=== PATIENT | male | born 1995 | race Caucasian/White ===

== ENCOUNTER 2023-05-22 13:03 | Inpatient (IN) | payer OTHER ==
[2023-05-22 13:56] LABS: Cocaine Screen,Urine Not Detected (NotDetected); Phencyclidine Screen,Urine Not Detected (NotDetected); Urn Cannabinoid Scrn Detected (NotDetected)
[2023-05-22 13:57] LABS: Amphetamine Screen,Urine Detected (NotDetected); Barbiturate Screen,Urine Not Detected (NotDetected); Benzodiazepines Screen,Urine Detected (NotDetected); Methadone Screen, Urine Not Detected (NotDetected); Opiate Screen,Urine Not Detected (NotDetected); Oxycodone Screen, Urine Not Detected (NotDetected); Tricyclic Antidepressant,Urine Not Detected (NotDetected)
[2023-05-22] MEDS ORDERED: LORazepam 1 MG TAB PO STA (14:50)
--- NOTE | 2023-05-22 15:00 | ED ---
Psych HPI - General Chief Complaint: Psychiatric Symptoms Stated Complaint: SUICIDAL IDEATION Time Seen by Provider: 05/22/23 13:16 Source: patient, RN notes reviewed Mode of arrival: ambulatory Limitations: no limitations - History of Present Illness Initial Comments: 28-year-old male presents emergency Department with chief complaint of depression, suicidal ideation, drug abuse. Patient states he relapsed on alcohol use. Patient states he he is severely depressed and states that he is a harm himself. Patient denies any alcohol abuse as a physical complaints. Patient was hospitalized a few months prior to this. - Related Data Home Medications Medication Instructions Recorded Confirmed Buprenorphine-Nalox 8-2 mg Tab 1 tab PO BID 11/15/22 11/15/22 [Suboxone 8-2 mg Tab] Previous Rx's Medication Instructions Recorded Mirtazapine [Remeron] 15 mg PO HS 30 Days #30 tab 11/15/22 Allergies Allergy/AdvReac Type Severity Reaction Status Date / Time No Known Allergies Allergy Verified 05/22/23 13:15 Review of Systems ROS Statement: Those systems with pertinent positive or pertinent negative responses have been documented in the HPI. ROS Other: All systems not noted in ROS Statement are negative. Past Medical History Past Medical History: No Reported History Additional Past Medical History / Comment(s): Cardiac Ablation at 14 years old. History of Any Multi-Drug Resistant Organisms: None Reported Past Surgical History: No Surgical Hx Reported Past Anesthesia/Blood Transfusion Reactions: No Reported Reaction Past Psychological History: ADD/ADHD, Anxiety, Depression Smoking Status: Current every day smoker, Vaper Past Alcohol Use History: None Reported Past Drug Use History: Cocaine, Marijuana, Opiates General Exam Limitations: no limitations General appearance: alert, in no apparent distress Head exam: Present: atraumatic, normocephalic, normal inspection Eye exam: Present: normal appearance, PERRL, EOMI. Absent: scleral icterus, conjunctival injection, periorbital swelling ENT exam: Present: normal exam, normal oropharynx, mucous membranes moist Neck exam: Present: normal inspection, full ROM. Absent: tenderness, meningismus, lymphadenopathy Respiratory exam: Present: normal lung sounds bilaterally. Absent: respiratory distress, wheezes, rales, rhonchi, stridor Cardiovascular Exam: Present: regular rate, normal rhythm, normal heart sounds. Absent: systolic murmur, diastolic murmur, rubs, gallop, clicks Neurological exam: Present: alert, oriented X3 Psychiatric exam: Present: depressed Course Vital Signs 05/22/23 13:12 Temperature 99.1 F Pulse Rate 86 Respiratory 18 Rate Blood Pressure 152/97 O2 Sat by Pulse 97 Oximetry Medical Decision Making - Medical Decision Making Was pt. sent in by a medical professional or institution (SADIQ Murray, AUTOMATIC CORN GRINDER OPERATOR, urgent care, hospital, or jail...) When possible be specific @ -No Did you speak to anyone other than the patient for history (EMS, parent, family, police, friend...)? What history was obtained from this source @ -No Did you review nursing and triage notes (agree or disagree)? Why? @ -I reviewed and agree with nursing and triage notes Were old charts reviewed (outside hosp., previous admission, EMS record, old EKG, old radiological studies, urgent care reports/EKG's, jail records)? Report findings @ -No old charts were reviewed Differential Diagnosis (chest pain, altered mental status, abdominal pain women, abdominal pain men, vaginal bleeding, weakness, fever, dyspnea, syncope, headache, dizziness, GI bleed, back pain, seizure, CVA, palpatations, mental health, musculoskeletal)? @ -Drug abuse, depression, suicidal ideation, anxiety EKG interpreted by me (3pts min.). @ -None X-rays interpreted by me (1pt min.). @ -None done CT interpreted by me (1pt min.). @ -None done U/S interpreted by me (1pt. min.). @ -None done What testing was considered but not performed or refused? (CT, X-rays, U/S, labs)? Why? @ -None What meds were considered but not given or refused? Why? @ -None Did you discuss the management of the patient with other professionals (professionals i.e. SADIQ Murray, AUTOMATIC CORN GRINDER OPERATOR, lab, RT, psych nurse, clinical social worker, converter operator, teacher, fire control officer, case resource manager)? Give summary @ -Patient fell are by psychiatric services recommends patient be admitted as he will not safety plan and has current suicidal ideations. Was smoking cessation discussed for >3mins.? @ -No Was critical care preformed (if so, how long)? @ -No Were there social determinants of health that impacted care today? How? (Homelessness, low income, unemployed, alcoholism, drug addiction, transportation, low edu. Level, literacy, decrease access to med. care, usp, rehab)? @ -No Was there de-escalation of care discussed even if they declined (Discuss DNR or withdrawal of care, Hospice)? DNR status @ -No What co-morbidities impacted this encounter? (DM, HTN, Smoking, COPD, CAD, Cancer, CVA, ARF, Chemo, Hep., AIDS, mental health diagnosis, sleep apnea, morbid obesity)? @ -Drug Abuse] Was patient admitted / discharged? Hospital course, mention meds given and route, prescriptions, significant lab abnormalities, going to OR and other pertinent info. @ -Admitted to psychiatric floor for further treatment and evaluation Undiagnosed new problem with uncertain prognosis? @ -No Drug Therapy requiring intensive monitoring for toxicity (Heparin, Nitro, Insulin, Cardizem)? @ -No Were any procedures done? @ -No Diagnosis/symptom? @ -Depression, suicidal ideation, drug abuse Acute, or Chronic, or Acute on Chronic? @ -Acute Uncomplicated (without systemic symptoms) or Complicated (systemic symptoms)? @ -complicated Side effects of treatment? @ -No Exacerbation, Progression, or Severe Exacerbation? @ -No Poses a threat to life or bodily function? How? (Chest pain, USA, AL, pneumonia, PE, COPD, DKA, ARF, appy, cholecystitis, CVA, Diverticulitis, Homicidal, Suicidal, threat to staff... and all critical care pts) @ -Yes patient is suicidal - Lab Data Lab Results 05/22/23 Range/Units 13:29 Urine Opiates Screen Not Detected (NotDetected) Ur Oxycodone Screen Not Detected (NotDetected) Urine Methadone Screen Not Detected (NotDetected) Ur Propoxyphene Screen Not Detected (NotDetected) Ur Barbiturates Screen Not Detected (NotDetected) U Tricyclic Antidepress Not Detected (NotDetected) Ur Phencyclidine Scrn Not Detected (NotDetected) Ur Amphetamines Screen Detected H (NotDetected) U Methamphetamines Scrn Not Detected (NotDetected) U Benzodiazepines Scrn Detected H (NotDetected) Urine Cocaine Screen Not Detected (NotDetected) U Marijuana (THC) Screen Detected H (NotDetected) Disposition Clinical Impression: Depression, Suicidal ideation, Drug abuse and dependence Disposition: TRANSFER TO PSYCH HOSP/UNIT Referrals: Kumar Back MD [Primary Care Provider] - 1-2 days Time of Disposition: 15:00
[2023-05-22] MEDS ORDERED: MAGNESIUM HYDROXIDE 2,400 MG/30 ML CUP PO PRN (18:49)
[2023-05-22] MEDS ORDERED: MAG HYDROX/AL HYDROX/SIMETH 30 ML CUP PO PRN (18:49)
[2023-05-22] MEDS ORDERED: OLANZapine 10 MG VIAL IM PRN (19:05)
[2023-05-22] MEDS ORDERED: LOPERAMIDE 2 MG CAP PO PRN (19:05)
[2023-05-22] MEDS ORDERED: hydrOXYzine HCL 50 MG/ML 1 ML VIAL IM PRN (19:05)
[2023-05-22] MEDS ORDERED: ONDANSETRON 4 MG TAB PO PRN (19:05)
[2023-05-22] MEDS: ACETAMINOPHEN TAB 325 MG TAB PO PRN (20:38)
[2023-05-22] MEDS: OLANZapine 5 MG TAB PO PRN (23:48)
[2023-05-22] MEDS: hydrOXYzine pamoate 25 MG CAP PO PRN (23:48)
[2023-05-23 07:02] LABS: Basophils % (A) 0 %; Eosinophils # (A) 0.1 k/uL (0-0.7); Eosinophils % (A) 1 %; HCT 47.3 % (39.0-53.0); HGB 16.2 gm/dL (13.0-17.5); Lymphocytes # (A) 2.4 k/uL (1.0-4.8); Lymphocytes % (A) 17 %; MCH 31.1 pg (25.0-35.0); MCHC 34.2 g/dL (31.0-37.0); Mean Platelet Volume 7.7; Monocytes # (A) 1.1 k/uL (0-1.0); Monocytes % (A) 8 %; Neutrophils # (A) 9.8 k/uL (1.3-7.7); Neutrophils % (A) 70 %; Platelet Count 251 k/uL (150-450); RDW 12.5 % (11.5-15.5)
[2023-05-23] MEDS: ACETAMINOPHEN TAB 325 MG TAB PO PRN (08:10)
[2023-05-23] MEDS: NICOTINE 14MG/24HR PATCH TRANSDERM SCH (08:11)
[2023-05-23 10:19] LABS: ALT 72 U/L (4-49); AST 36 U/L (17-59); African American GFR (CKD) >90 (>60 ml/min/1.73 sqM); Albumin 4.7 g/dL (3.5-5.0); Alkaline Phosphatase 57 U/L (38-126); Anion Gap 13 mmol/L; Blood Urea Nitrogen 18 mg/dL (9-20); Calcium 9.7 mg/dL (8.4-10.2); Carbon Dioxide 23 mmol/L (22-30); Chloride 104 mmol/L (98-107); Glucose 151 mg/dL (74-99); Non-African American GFR(CKD) >90 (>60 ml/min/1.73 sqM); Potassium 3.7 mmol/L (3.5-5.1); Sodium 140 mmol/L (137-145); Total Bilirubin 0.8 mg/dL (0.2-1.3); Total Protein 7.3 g/dL (6.3-8.2)
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
[2023-05-23] MEDS: ARIPiprazole 5 MG TAB PO SCH (13:10)
[2023-05-23] MEDS: BUPRENORPHINE-NALOX 8-2 MG TAB 1 EACH TAB.SUBL SL SCH ×2 (13:11→20:55)
[2023-05-23 13:34] LABS: Appearance,Urine Clear (Clear); Bilirubin,Urine Negative (Negative); Blood,Urine Trace (Negative); Calcium Oxalate Crystals,Urine Occasional /hpf; Color,Urine Yellow; Glucose,Urine (UA) Negative (Negative); Ketones,Urine Negative (Negative); Leukocyte Esterase,Urine Small (Negative); Mucus,Urine Occasional /hpf; Nitrite,Urine Negative (Negative); PH, Urine 5.5 (5.0-8.0); Protein,Urine Trace (Negative); RBC,Urine 8 /hpf (0-5); Specific Gravity,Urine 1.029 (1.001-1.035); WBC,Urine 9 /hpf (0-5)
[2023-05-23] MEDS: hydrOXYzine pamoate 25 MG CAP PO PRN (18:21)
[2023-05-23] MEDS: OLANZapine 5 MG TAB PO PRN (19:21)
[2023-05-23] MEDS ORDERED: MIRTAZAPINE 15 MG TAB PO SCH (21:00)
--- NOTE | 2023-05-23 23:26 | P.HPIM ---
History of Present Illness H&P Date: 05/23/23 Chief Complaint: Medication withdrawal depression. This is a 28-year-old white male who up until recently was struggling with fentanylAddiction. He has had history of depression in the past. He states he was having difficulty because of a work trip where he overstayed secondary to his work requirement and ran out of medication. He states he was struggling and started using inappropriate medications at times. No fentanyl was used however. No history of ethanol abuse. The patient is now admitted for severe depression and anxiety. No hallucinations stated. Review of Systems Constitutional: Denies chills, Denies fever Eyes: denies blurred vision, denies pain Ears, nose, mouth and throat: Denies headache, Denies sore throat Cardiovascular: Denies chest pain, Denies shortness of breath Respiratory: Denies cough Gastrointestinal: Denies abdominal pain, Denies diarrhea, Denies nausea, Denies vomiting Past Medical History Past Medical History: No Reported History Additional Past Medical History / Comment(s): Cardiac Ablation at 14 years old. History of Any Multi-Drug Resistant Organisms: None Reported Past Surgical History: No Surgical Hx Reported Past Anesthesia/Blood Transfusion Reactions: No Reported Reaction Past Psychological History: ADD/ADHD, Anxiety, Depression Smoking Status: Current every day smoker, Vaper Past Alcohol Use History: None Reported Past Drug Use History: Cocaine, Marijuana, Opiates Additional Drug Use History / Comment(s): pt states he uses 1700mg of fentanyl day,. he uses cocaine regularly. also takes adderall daily. marijuana daily Medications and Allergies Home Medications Medication Instructions Recorded Confirmed Type Buprenorphine/Naloxone 8Mg/2Mg 2 film SUBLINGUAL BID 05/22/23 05/22/23 History [Suboxone 8-2Mg Film] Dextroamphetamine/Amphetamine 30 mg PO DAILY 05/22/23 05/22/23 History [Adderall Xr 30 mg Capsule] Allergies Allergy/AdvReac Type Severity Reaction Status Date / Time No Known Allergies Allergy Verified 05/22/23 15:22 Physical Exam Vitals: Vital Signs Temp Pulse BP 05/23/23 13:12 97.6 F 94 148/96 - Constitutional General appearance: no acute distress - EENT Eyes: EOMI - Neck Neck: no lymphadenopathy - Respiratory Respiratory: bilateral: CTA - Cardiovascular Rhythm: regular Heart sounds: normal: S1, S2 Abnormal Heart Sounds: no S3 Gallop - Gastrointestinal General gastrointestinal: soft, no tenderness - Psychiatric Psychiatric: A&O x's 3, appropriate affect Results CBC & Chem 7: 05/23/23 06:41 05/23/23 06:41 Labs: Abnormal Lab Results - Last 24 Hours (Table) 05/23/23 05/23/23 05/23/23 Range/Units 06:41 06:41 13:11 WBC 14.0 H (3.8-10.6) k/uL Neutrophils # 9.8 H (1.3-7.7) k/uL Monocytes # 1.1 H (0-1.0) k/uL Glucose 151 H (74-99) mg/dL ALT 72 H (4-49) U/L Urine Protein Trace H (Negative) Urine Blood Trace H (Negative) Ur Leukocyte Esterase Small H (Negative) Urine RBC 8 H (0-5) /hpf Urine WBC 9 H (0-5) /hpf Calcium Oxalate Crystal Occasional H (None) /hpf Urine Mucus Occasional H (None) /hpf Assessment and Plan (1) Depression Current Visit: Yes Status: Acute Code(s): F32.A - DEPRESSION, UNSPECIFIED SNOMED Code(s): 97526897 (2) Drug abuse and dependence Current Visit: Yes Status: Acute Code(s): F19.20 - OTHER PSYCHOACTIVE SUBSTANCE DEPENDENCE, UNCOMPLICATED SNOMED Code(s): 6578172 (3) Suicidal ideation Current Visit: Yes Status: Acute Code(s): R45.851 - SUICIDAL IDEATIONS SNOMED Code(s): 2210639 (4) ADD (attention deficit disorder) Current Visit: No Status: Acute Code(s): F98.8 - OTH BEHAV/EMOTN DISORD W ONSET USLY OCCUR IN CHLDHD AND ADOL SNOMED Code(s): 60837321 Plan: With patient has been started on low-dose atypical antipsychotic. Restart Suboxone per protocol of the unit. We will continue follow from medical perspective. Prognosis is improving. Spoke at length about substance abuse improvement lifestyle excellence. Time with Patient: Greater than 30
[2023-05-24] MEDS: hydrOXYzine pamoate 25 MG CAP PO PRN ×2 (00:07→15:59)
[2023-05-24] MEDS ORDERED: chlordiazePOXIDE 25 MG CAP PO ONE (00:25)
[2023-05-24] MEDS: NICOTINE 14MG/24HR PATCH TRANSDERM SCH (08:27)
[2023-05-24] MEDS: ARIPiprazole 5 MG TAB PO SCH (08:30)
[2023-05-24] MEDS: BUPRENORPHINE-NALOX 8-2 MG TAB 1 EACH TAB.SUBL SL SCH ×2 (08:43→20:25)
--- NOTE | 2023-05-24 11:35 | P.PN ---
Progress Note - Text Progress Note Date: 05/24/23 Interval History: Patient was seen [wandering the hallways] and was directable and agreeable to speak with flex o writer operator in the office. [ Patient appears to have improvement in hygiene and grooming today. He appears to be more pleasant today. He states that last night his blood pressure was high and he is feeling very anxious in going through withdrawal. He was given Librium 1 dose of 50 mg and states that he did well after that and was able to sleep. He claims that he is finding it hard to sleep on the unit and was agreeable to have his Remeron increased. We also spoke about increasing his Abilify which she is stating that it is helping stabilize his mood. States that he still having some anxiety during the day he was reminded that he had Vistaril as needed. States that he has been trying to go to groups. He was asking questions about potential discharge next week when he is more stable. He is still waiting to hear back from the screening for rehab however at this time he is looking more likely doing outpatient treatment instead of inpatient due to his work schedule]. At this time patient denies any suicidal or homical ideations, intent or plan. Patient denies any auditory, visual hallucinations and denies any paranoia or delusions. Patient denies any side effects from the medications and has been compliant with meds. Mental Status Exam: General Appearance: Patient appears to be stated age is alert, directable, and attempts to cooperate. Patient appears to have fair hygiene and grooming. Behavior: Patient is seated without any agitated behavior. Slightly restless with mild tremor, attempts to cooperate Speech: Patient's speech is fluent and nonpressured. Mood/Affect: Patient reports their mood is "a bit better", affect is congruent and improving mildly Suicidality/Homicidality: Patient denies having any homicidal ideation intent or plan. Denies current suicidal ideationn Perceptions: Patient denies any visual hallucinations and denies any auditory hallucinations Though content/process: There is no evidence of any delusional thought content and thought process is linear and goal-directed. Memory and concentration: AOX3, grossly intact for the purposes of this session. Judgment and insight: Fair insight, improving judgment, impulsive IMPRESSIONS: Depressive disorder unspecified, likely bipolar depression Opioid use disorder, severe dependence on maintenance therapy Benzodiazepine abuse cocaine use disorder cannabis use disorder nicotine dependence PLAN: -Patient is admitted under voluntary status to MHU for stabilization of psychiatric symptoms and safety. Patient signed adult voluntary form and medication consent and is placed in patient's chart. -Medications : increase abilify 5 mg daily for mood stabilization, increase remeron 30 mg qhs for insomnia/mood. continue home dose of suboxone 8 mg bid for opioid dependence Ativan 1 mg q6hr prn for withdrawal from BZD according to MARCELA Librium 20 mg BID for withdrawal with plan to taper down for benzo withdrawal over the weekend. [facility] protocol q6hr - Vistaril and zyprexa PRN for anxiety/agitation -NRT - nicotine patch -SW on board for discharge planning. Encourage patient to participate in groups to work on coping skills. likely discharge saturday. patient is opting for outpatient [facility] therapy instead of inpt.
[2023-05-24] MEDS: NICOTINE 21MG/24HR PATCH TRANSDERM SCH (13:14)
[2023-05-24] MEDS: MIRTAZAPINE 15 MG TAB PO SCH (20:25)
[2023-05-24] MEDS: LORazepam 1 MG TAB PO PRN (20:31)
[2023-05-24] MEDS ORDERED: cloNIDine HCL 0.1 MG TAB PO STA (22:00)
[2023-05-24] MEDS ORDERED: LORazepam 1 MG TAB PO STA (22:00)
[2023-05-24] MEDS: IBUPROFEN 600 MG TAB PO PRN (23:08)
[2023-05-25] MEDS: LORazepam 1 MG TAB PO PRN ×2 (06:41→18:28)
[2023-05-25] MEDS: NICOTINE 21MG/24HR PATCH TRANSDERM SCH (08:18)
[2023-05-25] MEDS: ARIPiprazole 5 MG TAB PO SCH (08:19)
[2023-05-25] MEDS: BUPRENORPHINE-NALOX 8-2 MG TAB 1 EACH TAB.SUBL SL SCH ×2 (08:19→20:03)
--- NOTE | 2023-05-25 11:10 | P.PN ---
Subjective Progress Note Date: 05/25/23 Principal diagnosis: IMPRESSIONS: Depressive disorder unspecified, likely bipolar depression Opioid use disorder, severe dependence on maintenance therapy Benzodiazepine abuse cocaine use disorder cannabis use disorder nicotine dependence Patient Name: Aleksandr Lu Date of : 89 Patient Status: Inpatient Attending Provider: Jayme Murphy Date: 11/15 Progress note Bran Wyman M.D. Interval History: Patient was seen [wandering the hallways] and was directable and agreeable to speak with consumer loan underwriter in the office. Patient was initially having a visitation with one of his family members and was seen afterwards Patient reports that he slept better of it was giving the medications at nighttime He appears to be more pleasant today. He states that last night his blood pressure was high and he is feeling very anxious in going through withdrawal. He was asking questions about potential discharge next week when he is more stable. He is still waiting to hear back from the screening for rehab however at this time he is looking more likely doing outpatient treatment instead of inpatient due to his work schedule]. At this time patient denies any suicidal or homical ideations, intent or plan. Patient denies any auditory, visual hallucinations and denies any paranoia or delusions. Patient denies any side effects from the medications and has been compliant with meds. Mental Status Exam: General Appearance: Patient appears to be stated age is alert, directable, and attempts to cooperate. Patient appears to have fair hygiene and grooming. Behavior: Patient is seated without any agitated behavior. Slightly restless with mild tremor, attempts to cooperate Speech: Patient's speech is fluent and nonpressured. Mood/Affect: Patient reports their mood is "a bit better", affect is congruent and improving mildly Suicidality/Homicidality: Patient denies having any homicidal ideation intent or plan. Denies current suicidal ideationn Perceptions: Patient denies any visual hallucinations and denies any auditory hallucinations Though content/process: There is no evidence of any delusional thought content and thought process is linear and goal-directed. Memory and concentration: AOX3, grossly intact for the purposes of this session. Judgment and insight: Fair insight, improving judgment, impulsive IMPRESSIONS: Depressive disorder unspecified, likely bipolar depression Opioid use disorder, severe dependence on maintenance therapy Benzodiazepine abuse cocaine use disorder cannabis use disorder nicotine dependence PLAN: -Patient is admitted under voluntary status to MHU for stabilization of psychiatric symptoms and safety. Patient signed adult voluntary form and medication consent and is placed in patient's chart. -Medications : increase abilify 5 mg daily for mood stabilization, increase remeron 30 mg qhs for insomnia/mood. continue home dose of suboxone 8 mg bid for opioid dependence Ativan 1 mg q6hr prn for withdrawal from BZD according to [facility] Librium 20 mg BID for withdrawal with plan to taper down for benzo withdrawal over the weekend. [facility] protocol q6hr - Vistaril and zyprexa PRN for anxiety/agitation -NRT - nicotine patch -SW on board for discharge planning. Encourage patient to participate in groups to work on coping skills. likely discharge saturday. patient is opting for outpatient [facility] therapy instead of inpt. Bran Wyman M.D. Objective - Vital Signs Vital signs: Vital Signs Temp 96.7 F L 05/25/23 06:30 Pulse 85 05/25/23 06:30 Resp 16 05/25/23 06:30 BP 139/99 05/25/23 06:30 Pulse Ox 99 05/25/23 06:30 FiO2 - Labs CBC & Chem 7: 05/23/23 06:41 05/23/23 06:41
[2023-05-25] MEDS: MIRTAZAPINE 15 MG TAB PO SCH (21:52)
[2023-05-25] MEDS: hydrOXYzine pamoate 25 MG CAP PO PRN (21:55)
[2023-05-26] MEDS: IBUPROFEN 600 MG TAB PO PRN (06:15)
[2023-05-26] MEDS: BUPRENORPHINE-NALOX 8-2 MG TAB 1 EACH TAB.SUBL SL SCH ×2 (08:14→20:07)
[2023-05-26] MEDS: ARIPiprazole 5 MG TAB PO SCH (08:14)
[2023-05-26] MEDS: NICOTINE 21MG/24HR PATCH TRANSDERM SCH (08:15)
--- NOTE | 2023-05-26 09:09 | P.PN ---
Subjective Progress Note Date: 05/26/23 Principal diagnosis: IMPRESSIONS: Depressive disorder unspecified, likely bipolar depression Opioid use disorder, severe dependence on maintenance therapy Benzodiazepine abuse cocaine use disorder cannabis use disorder nicotine dependence Patient Name: Aleksandr Lu Date of : [birth year] Patient Status: Inpatient Attending Provider: Jayme Murphy Date: 05/26/23 Progress note Bran Garo Parra Interval History: Patient was seen [wandering the hallways] and was directable and agreeable to speak with check writer in the office. The patient reports that he feels a lot better and that he is not experiencing any withdrawals or shakes He says that he slept well He was asking questions about potential discharge in the next few days He is still waiting to hear back from the screening for rehab however at this t diaz he is looking more likely doing outpatient treatment instead of inpatient due to his work schedule]. At this time patient denies any suicidal or homical ideations, intent or plan. Patient denies any auditory, visual hallucinations and denies any paranoia or delusions. Patient denies any side effects from the medications and has been compliant with meds. Mental Status Exam: General Appearance: Patient appears to be stated age is alert, directable, and attempts to cooperate. Patient appears to have fair hygiene and grooming. Behavior: Patient is seated without any agitated behavior. Slightly restless with mild tremor, attempts to cooperate Speech: Patient's speech is fluent and nonpressured. Mood/Affect: Patient reports their mood is "a bit better", affect is congruent and improving mildly Suicidality/Homicidality: Patient denies having any homicidal ideation intent or plan. Denies current suicidal ideationn Perceptions: Patient denies any visual hallucinations and denies any auditory hallucinations Though content/process: There is no evidence of any delusional thought content and thought process is linear and goal-directed. Memory and concentration: AOX3, grossly intact for the purposes of this session. Judgment and insight: Fair insight, improving judgment, impulsive IMPRESSIONS: Depressive disorder unspecified, likely bipolar depression Opioid use disorder, severe dependence on maintenance therapy Benzodiazepine abuse cocaine use disorder cannabis use disorder nicotine dependence PLAN: -Patient is admitted under voluntary status to MHU for stabilization of p sychiatric symptoms and safety. Patient signed adult voluntary form and medication consent and is placed in patient's chart. -Medications : increase abilify 5 mg daily for mood stabilization, increase remeron 30 mg qhs for insomnia/mood. continue home dose of suboxone 8 mg bid for opioid dependence Ativan 1 mg q6hr prn for withdrawal from BZD according to [facility] Librium 20 mg BID for withdrawal with plan to taper down for benzo withdrawal over the weekend. [facility] protocol q6hr - Vistaril and zyprexa PRN for anxiety/agitation -NRT - nicotine patch -SW on board for discharge planning. Encourage patient to participate in groups to work on coping skills. likely discharge saturday. patient is opting for outpatient [facility] therapy instead of inpt. Bran Wyman M.D. Objective - Vital Signs Vital signs: Vital Signs Temp 97.8 F 05/26/23 05:44 Pulse 96 05/26/23 05:44 Resp 18 05/26/23 05:44 BP 161/96 05/26/23 05:44 Pulse Ox 99 05/26/23 05:44 FiO2 - Labs CBC & Chem 7: 05/23/23 06:41 05/23/23 06:41
[2023-05-26] MEDS: hydrOXYzine pamoate 25 MG CAP PO PRN (16:24)
[2023-05-26] MEDS: MIRTAZAPINE 15 MG TAB PO SCH (21:42)
[2023-05-27] MEDS: ARIPiprazole 5 MG TAB PO SCH (08:12)
[2023-05-27] MEDS: NICOTINE 21MG/24HR PATCH TRANSDERM SCH (08:12)
[2023-05-27] MEDS: BUPRENORPHINE-NALOX 8-2 MG TAB 1 EACH TAB.SUBL SL SCH ×2 (08:12→20:10)
[2023-05-27] MEDS: IBUPROFEN 600 MG TAB PO PRN ×2 (08:37→17:22)
--- NOTE | 2023-05-27 10:42 | P.PN ---
Progress Note - Text Progress Note Date: 05/27/23 Interval History: Patient was seen sitting in the lounge this morning and was directable and agr eeable to speak with card writer hand in the office. [ Patient appears to have improvement in hygiene and grooming today and was more directable during the interview. He claims that he is doing a bit better today overall. States that she is tolerating the medications fairly well. He was asking if he could have his Remeron increased to 45 mg once again. He was relying on the Librium to help him with sleep however now was instructed to try the Vistaril instead. He claims that he was accepted into a program for rehab in [place] in his work and pay for it and he states that he is excited to go. He was asking more about discharged today and when the community arranged. He states that he is going to groups and having to participate. At this time patient denies any suicidal or homical ideations, intent or plan. Patient denies any auditory, visual hallucinations and denies any paranoia or delusions. Patient denies any side effects from the medications and has been compliant with meds. Mental Status Exam: General Appearance: Patient appears to be stated age is alert, directable, and attempts to cooperate. Patient appears to have fair hygiene and grooming. Behavior: Patient is seated without any agitated behavior, attempts to cooperate Speech: Patient's speech is fluent and nonpressured. Mood/Affect: Patient reports their mood is "ok", affect is congruent and improving mildly Suicidality/Homicidality: Patient denies having any homicidal ideation intent or plan. Denies current suicidal ideationn Perceptions: Patient denies any visual hallucinations and denies any auditory hallucinations Though content/process: There is no evidence of any delusional thought content and thought process is linear and goal-directed. Memory and concentration: AOX3, grossly intact for the purposes of this session. Judgment and insight: Fair insight, improving judgment IMPRESSIONS: Depressive disorder unspecified, likely bipolar depression Opioid use disorder, severe dependence on maintenance therapy Benzodiazepine abuse cocaine use disorder cannabis use disorder nicotine dependence PLAN: -Patient is admitted under voluntary status to MHU for stabilization of psychiatric symptoms and safety. Patient signed adult voluntary form and medication consent and is placed in patient's chart. -Medications : abilify 5 mg daily for mood stabilization, increase remeron 45 mg qhs for insomnia/mood. continue home dose of suboxone 8 mg bid for opioid dependence. Ativan 1 mg q6hr prn for withdrawal from BZD according to [facility] decrease Librium 10 mg BID for withdrawal with plan to taper down for benzo withdrawal [facility] protocol q6hr - Vistaril and zyprexa PRN for anxiety/agitation -NRT - nicotine patch - on board for discharge planning. Encourage patient to participate in groups to work on coping skills. likely discharge saturday. patient will be picked up and travel arrangements will be made so patient can go to rehab in [place]
[2023-05-27] MEDS ORDERED: MIRTAZAPINE 15 MG TAB PO SCH (21:00)
[2023-05-28] MEDS: hydrOXYzine pamoate 25 MG CAP PO PRN (03:19)
[2023-05-28 06:27] VITALS: RESP 16; TEMP 98.2
[2023-05-28] MEDS: ARIPiprazole 5 MG TAB PO SCH (08:02)
[2023-05-28] MEDS: BUPRENORPHINE-NALOX 8-2 MG TAB 1 EACH TAB.SUBL SL SCH (08:02)
[2023-05-28] MEDS: NICOTINE 21MG/24HR PATCH TRANSDERM SCH (08:02)
[2023-05-28 08:07] VITALS: BP 163/101; PULSE 102
--- NOTE | 2023-05-28 10:11 | P.DS ---
Providers Date of admission: 05/22/23 18:38 Expected date of discharge: 05/28/23 Attending physician: Jayme Murphy MD Consults: 05/22/23 19:02 Consult Physician Routine Consulting Provider: Kumar Back Consult Reason/Comments: H&P Do you want consulting provider notified?: Yes, Notify in am Primary care physician: Kumar Back - Discharge Diagnosis(es) (1) Depressive disorder Current Visit: Yes Status: Acute Priority: High (2) Opioid use disorder, severe, dependence Current Visit: Yes Status: Acute Priority: High (3) Benzodiazepine abuse Current Visit: Yes Status: Acute Priority: High (4) Cocaine use disorder Current Visit: Yes Status: Acute Priority: High (5) Cannabis use disorder Current Visit: Yes Status: Acute Priority: Medium (6) Nicotine dependence Current Visit: Yes Status: Acute Priority: Low Hospital Course: Admission HPI: Admission note was completed by life insurance underwriter "Patient is a single, employed, 28-year-old [place]ian male who is presenting with suicidal ideation and poly substance use. Patient presented to the ED with suicidal ideation, depression and substance abuse. Patient was last admitted to the mental health unit in October 2022. Patient had claimed that he relapsed back on alcohol. Patient was admitted voluntarily the mental health unit and seen wandering the hallways today. Patient states that he was feeling depressed and suicidal before coming in. He states that he brought himself into the hospital for help. 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 He claims that he did not talk enough Suboxone with him. States that instead of getting his work to pay for 2 extra flights to come home to get it he states that he "started using drugs and stat". He claims that he was worried about withdrawals at that time. States that the relapses back in April 27 of this year. He claims that he was using fentanyl about 2 mg a day. Claims that his primary care physician prescribes him Suboxone which she was doing fairly well on 8 mg film twice a day. He states that he was also using Xanax off the street and also cocaine use has increased. States that he smokes cigarettes as well and also marijuana regularly. He claims that he was feeling depressed mainly because of the relapse on the drug use that he has been doing. Claims that he is also feeling anxious. States that his sleep is poor, appetite has also been poor. At this time is denying any suicidal or homicidal ideations intent or plan. Denying any auditory or visual hallucinations. Patient was positive for amphetamines, BZD and THC. " Hospital course: Upon admission to the unit patient was directable and agreeable to commence treatment and signed adult voluntary form. Patient got along well with other patients on the unit and followed unit protocol. Patient was compliant with the medications and denied any side effects throughout hospital course. Patient was started on Abilify and increased her dose of 5 mg daily for mood stabilization, Remeron 45 mg daily at bedtime for insomnia/mood, patient was restarted back on Suboxone 8 mg twice a day for opioid dependence, Librium was started and scheduled and gradually taper down for benzodiazepine withdrawal. Patient was also on [facility] protocol with when necessary Ativan. When necessary Vistaril for anxiety/insomnia. Patient spoke of his stressors and engaged in therapy both group and individual. Patient was also seen by medical team for history and physical exam. Throughout the course of the hospitalization patient gradually improved with regards to mood, anxiety, mood lability, sleep and became more future oriented with improved insight and judgment. On the day of discharge patient denied any suicidal or homicidal ideations intent or plan denied any auditory or visual hallucinations. Patient endorsed wanting to live for his health and family. The patient denied any access to guns or weapons. Patient denied any paranoia and did not endorse any delusions. Patient does have a significant history of substance abuse and was counseled on abstaining from all substances including alcohol and marijuana. Patient was able to get into a inpatient rehab program in [place] and will be picked up by his parents today and taken to the airport to commence this program starting tomorrow likely. Patient was also counseled on the medications and need for regular compliance and was encouraged to follow-up with their outpatient appointment for mental health and also for primary care. Prior to discharge a family meeting will be arranged by social media community manager to answer any questions and ensure safety upon discharge. Mental status exam: General Appearance: Patient appears to be tall, several tattoos, wearing glasses, stated age is alert, pleasant, and cooperative. Patient is in no acute distress and has improved hygiene and grooming Behavior: Patient is calmly seated without any agitated behavior. Speech: Patient's speech is fluent and nonpressured. Mood/Affect: Patient reports their mood is "good", affect is congruent and euthymic. Suicidality/Homicidality: Patient denies having any suicidal or homicidal ideation intent or plan. Perceptions: Patient denies any auditory or visual hallucinations. Though content/process: There is no evidence of any delusional thought content and thought process is linear and goal-directed. more future oriented Memory and concentration: AOX3, grossly intact for the purposes of this session. Can spell "WORLD" backwards correctly. Judgment and insight: improved with guarded prognosis Impression: Depressive disorder unspecified, likely bipolar depression Opiate use disorder, severe dependence on maintenance therapy Benzodiazepine abuse Cocaine use disorder Cannabis use disorder Nicotine dependence Plan: -Continue with discharge today as patient has improved and stabilized psychiatrically and is not currently an imminent threat to himself and/or others. Patient will remain at chronically elevated risk for harm to self and/or others due to his impulsivity and polysubstance abuse. -Continue medications: Abilify 5 mg daily for mood stabilization, Remeron 45 mg daily at bedtime for insomnia/mood, continue with home dose of Suboxone 8 mg twice a day for opiate dependence, we'll give a 3 day supply of Librium 10 mg daily at bedtime for benzodiazepine withdrawal then discontinue. Vistaril 50 mg twice a day when necessary for anxiety. -Patient was counseled on the need for medication compliance and appropriate follow-up at mental health and also primary care for medical issues. Patient verbalized understanding and agreed. -Social work to arrange for and conduct family meeting to ensure safety upon discharge and answer any questions/concerns. Social work also to arrange for patients follow up appointments for psychiatric care along with follow up with primary care provider. -Patient counseled on abstaining from recreational drugs and marijuana and alcohol. Was informed/educated on the adverse effects on their physical and mental health. Patient verbally agreed and understood. Patient will be going to a inpatient rehab program for substance use in [place], will be picked up by his parents today and taken to the airport. -Patient was instructed to return to the hospital or seek immediate medical care if their psychiatric or medical symptoms do worsen or reoccur. Allergies Allergy/AdvReac Type Severity Reaction Status Date / Time No Known Allergies Allergy Verified 05/22/23 15:22 Laboratory Results WBC 14.0 k/uL (3.8-10.6) H 05/23/23 06:41 RBC 5.20 m/uL (4.30-5.90) 05/23/23 06:41 Hgb 16.2 gm/dL (13.0-17.5) 05/23/23 06:41 Hct 47.3 % (39.0-53.0) 05/23/23 06:41 MCV 91.0 fL (80.0-100.0) 05/23/23 06:41 MCH 31.1 pg (25.0-35.0) 05/23/23 06:41 MCHC 34.2 g/dL (31.0-37.0) 05/23/23 06:41 RDW 12.5 % (11.5-15.5) 05/23/23 06:41 Plt Count 251 k/uL (150-450) 05/23/23 06:41 MPV 7.7 05/23/23 06:41 Neutrophils % 70 % 05/23/23 06:41 Lymphocytes % 17 % 05/23/23 06:41 Monocytes % 8 % 05/23/23 06:41 Eosinophils % 1 % 05/23/23 06:41 Basophils % 0 % 05/23/23 06:41 Neutrophils # 9.8 k/uL (1.3-7.7) H 05/23/23 06:41 Lymphocytes # 2.4 k/uL (1.0-4.8) 05/23/23 06:41 Monocytes # 1.1 k/uL (0-1.0) H 05/23/23 06:41 Eosinophils # 0.1 k/uL (0-0.7) 05/23/23 06:41 Basophils # 0.0 k/uL (0-0.2) 05/23/23 06:41 Sodium 140 mmol/L (137-145) 05/23/23 06:41 Potassium 3.7 mmol/L (3.5-5.1) 05/23/23 06:41 Chloride 104 mmol/L (98-107) 05/23/23 06:41 Carbon Dioxide 23 mmol/L (22-30) 05/23/23 06:41 Anion Gap 13 mmol/L 05/23/23 06:41 BUN 18 mg/dL (9-20) 05/23/23 06:41 Creatinine 0.81 mg/dL (0.66-1.25) 05/23/23 06:41 Est GFR (CKD-EPI)AfAm >90 (>60 ml/min/1.73 sqM) 05/23/23 06:41 Est GFR (CKD-EPI)NonAf >90 (>60 ml/min/1.73 sqM) 05/23/23 06:41 Glucose 151 mg/dL (74-99) H 05/23/23 06:[address] Glu mg/dL 100 mg/dL 05/23/23 06:41 Hemoglobin A1c 5.1 % (<=6.0) 05/23/23 06:41 Calcium 9.7 mg/dL (8.4-10.2) 05/23/23 06:41 Total Bilirubin 0.8 mg/dL (0.2-1.3) 05/23/23 06:41 AST 36 U/L (17-59) 05/23/23 06:41 ALT 72 U/L (4-49) H 05/23/23 06:41 Alkaline Phosphatase 57 U/L (38-126) 05/23/23 06:41 Total Protein 7.3 g/dL (6.3-8.2) 05/23/23 06:41 Albumin 4.7 g/dL (3.5-5.0) 05/23/23 06:41 TSH 0.595 mIU/L (0.465-4.680) 05/23/23 06:41 Urine Color Yellow 05/23/23 13:11 Urine Appearance Clear (Clear) 05/23/23 13:11 Urine pH 5.5 (5.0-8.0) 05/23/23 13:11 Ur Specific Vista 1.029 (1.001-1.035) 05/23/23 13:11 Urine Protein Trace (Negative) H 05/23/23 13:11 Urine Glucose (UA) Negative (Negative) 05/23/23 13:11 Urine Ketones Negative (Negative) 05/23/23 13:11 Urine Blood Trace (Negative) H 05/23/23 13:11 Urine Nitrite Negative (Negative) 05/23/23 13:11 Urine Bilirubin Negative (Negative) 05/23/23 13:11 Urine Urobilinogen 3.0 mg/dL (<2.0) 05/23/23 13:11 Ur Leukocyte Esterase Small (Negative) H 05/23/23 13:11 Urine RBC 8 /hpf (0-5) H 05/23/23 13:11 Urine WBC 9 /hpf (0-5) H 05/23/23 13:11 Calcium Oxalate Crystal Occasional /hpf (None) H 05/23/23 13:11 Urine Mucus Occasional /hpf (None) H 05/23/23 13:11 Urine Opiates Screen Not Detected (NotDetected) 05/22/23 13:29 Ur Oxycodone Screen Not Detected (NotDetected) 05/22/23 13:29 Urine Methadone Screen Not Detected (NotDetected) 05/22/23 13:29 Ur Propoxyphene Screen Not Detected (NotDetected) 05/22/23 13:29 Ur Barbiturates Screen Not Detected (NotDetected) 05/22/23 13:29 U Tricyclic Antidepress Not Detected (NotDetected) 05/22/23 13:29 Ur Phencyclidine Scrn Not Detected (NotDetected) 05/22/23 13:29 Ur Amphetamines Screen Detected (NotDetected) H 05/22/23 13:29 U Methamphetamines Scrn Not Detected (NotDetected) 05/22/23 13:29 U Benzodiazepines Scrn Detected (NotDetected) H 05/22/23 13:29 Urine Cocaine Screen Not Detected (NotDetected) 05/22/23 13:29 U Marijuana (THC) Screen Detected (NotDetected) H 05/22/23 13:29 Coronavirus (PCR) Not Detected (Not Detectd) 05/22/23 17:06 Vital Signs Temp 98.2 F 05/28/23 06:27 Pulse 102 H 05/28/23 08:04 Resp 16 05/28/23 06:27 BP 163/101 05/28/23 08:04 Pulse Ox 98 05/28/23 06:27 FiO2 Patient Condition at Discharge: Stable Plan - Discharge Summary Discharge Rx Participant: No New Discharge Prescriptions: New chlordiazePOXIDE HCl [Librium] 10 mg PO HS 3 Days #3 cap Ibuprofen [Motrin] 600 mg PO Q6HR PRN tab PRN Reason: Moderate Pain (Scale 4 To 6) ARIPiprazole [Abilify] 5 mg PO DAILY 14 Days #14 tab Nicotine 21Mg/24Hr Patch [Habitrol] 1 patch TRANSDERM DAILY 14 Days #14 patch Mirtazapine [Remeron] 45 mg PO HS 14 Days #14 tab Acetaminophen Tab [Tylenol] 650 mg PO Q4HR PRN tab PRN Reason: Mild Pain (Scale 1 To 3) hydrOXYzine pamoate [Vistaril] 50 mg PO BID PRN 14 Days #56 cap PRN Reason: Anxiety Continue Buprenorphine/Naloxone 8Mg/2Mg [Suboxone 8-2Mg Film] 2 film SUBLINGUAL BID Discontinued Dextroamphetamine/Amphetamine [Adderall Xr 30 mg Capsule] 30 mg PO DAILY Discharge Medication List Buprenorphine/Naloxone 8Mg/2Mg [Suboxone 8-2Mg Film] 2 film SUBLINGUAL BID 05/22/23 [History] ARIPiprazole [Abilify] 5 mg PO DAILY 14 Days #14 tab 05/28/23 [Rx] Acetaminophen Tab [Tylenol] 650 mg PO Q4HR PRN tab 05/28/23 [Rx] Ibuprofen [Motrin] 600 mg PO Q6HR PRN tab 05/28/23 [Rx] Mirtazapine [Remeron] 45 mg PO HS 14 Days #14 tab 05/28/23 [Rx] Nicotine 21Mg/24Hr Patch [Habitrol] 1 patch TRANSDERM DAILY 14 Days #14 patch 05/28/23 [Rx] chlordiazePOXIDE HCl [Librium] 10 mg PO HS 3 Days #3 cap 05/28/23 [Rx] hydrOXYzine pamoate [Vistaril] 50 mg PO BID PRN 14 Days #56 cap 05/28/23 [Rx] Follow up Appointment(s)/Referral(s): Kumar Back MD [Primary Care Provider] - 1-2 days Activity/Diet/Wound Care/Special Instructions: Avoid the use of street drugs and alcohol. Take all medications as prescribed. When you are in need of refills on your medications, please contact your medical provider and/or outpatient psychiatrist/provider to have this done. Please go to your scheduled outpatient appointment for aftercare treatment. If symptoms return or become worse, call the crisis line at and/or go to the nearest emergency room for evaluation. National Suicide Hotline 988. Discharge Disposition: HOME SELF-CARE
== END 2023-05-28 12:05 | disposition home or self-care (01) | DRG 885 ==
LOC: EC 13:03 → 3MHU 18:38
PROVIDERS: ADMIT Psychiatry & Neurology Psychiatry; ATTEND Psychiatry & Neurology Psychiatry
DX: F31.30 Bipolar disorder, current episode depressed, mild or moderate severity, unspecified (principal); R45.851 Suicidal ideations; F11.20 Opioid dependence, uncomplicated; F14.10 Cocaine abuse, uncomplicated; F12.10 Cannabis abuse, uncomplicated; F13.10 Sedative, hypnotic or anxiolytic abuse, uncomplicated; F41.9 Anxiety disorder, unspecified; F90.9 Attention-deficit hyperactivity disorder, unspecified type; F17.290 Nicotine dependence, other tobacco product, uncomplicated; G47.00 Insomnia, unspecified; Z62.810 Personal history of physical and sexual abuse in childhood; F17.210 Nicotine dependence, cigarettes, uncomplicated; Z20.822 Contact with and (suspected) exposure to COVID-19; Z79.899 Other long term (current) drug therapy
CPT/HCPCS: 80053; 80306; 81001; 82075; 83036; 84443; 85025; 87635; 99285